=== PATIENT | female | born 2000 | race American Indian/Alaskan Native ===

== ENCOUNTER 2021-02-19 23:53 | Emergency (ER) | payer OTHER ==
[2021-02-20 00:55] VITALS: BP 111/68
--- NOTE | 2021-02-20 01:13 | Emergency Department Report ---
ED General Adult HPI - General Chief complaint: Rectal Pain Stated complaint: RECTUM PAIN/HEMORRHOIDS Time Seen by Provider: 02/20/21 00:57 Source: patient Mode of arrival: Ambulatory Limitations: No Limitations - History of Present Illness Initial comments: 21-year-old female presents to the emergency department with complaints of rectal discomfort starting 1 hour ago. Patient states she noticed bleeding after a bowel movement, prompting her to come to the emergency department. Patient states she experienced similar symptoms a few years ago. Patient is currently 7 months . No recent trauma. No medications prior to arrival. Denies fever, chills, melena, vaginal bleeding, purulent drainage. Denies all other complaints at this time. - Related Data Previous Rx's Medication Instructions Recorded Last Taken Type Hydrocort/Pramoxine [Proctofoam-Hc] 10 gm MI QID #1 can 02/20/21 Unknown Rx Allergies Allergy/AdvReac Type Severity Reaction Status Date / Time No Known Allergies Allergy Verified 02/20/21 00:55 ED Review of Systems ROS: Stated complaint: RECTUM PAIN/HEMORRHOIDS Other details as noted in HPI Other: GENERAL: Negative for fever. CARDIOVASCULAR: Negative for chest pain. PULMONARY: Negative for shortness of breath. GASTROINTESTINAL: Positive for rectal pain and bleeding. MUSCULOSKELETAL: Negative for back pain. NEUROLOGICAL: Negative for headache. INTEGUMENTARY: Negative for rash. ED Past Medical Hx - Past Medical History Previous Medical History?: No - Surgical History Past Surgical History?: No - Social History Smoking Status: Never Smoker Substance Use Type: None - Medications Home Medications: Home Medications Medication Instructions Recorded Confirmed Last Taken Type Hydrocort/Pramoxine [Proctofoam-Hc] 10 gm MI QID #1 can 02/20/21 Unknown Rx ED Physical Exam - General Limitations: No Limitations - Other Other exam information: General: Awake, appropriately interactive, no acute distress. Neck: Supple. Full range of motion intact. Cardiovascular: Normal peripheral perfusion. Pulmonary: No respiratory distress. Patient is speaking normally without use of accessory muscles. Rectal: Female pre certification specialist (asael Blum) present. Non-thrombosed external hemorrhoid noted at approximately 10:00 position. No bleeding. Skin: No apparent rashes or lesions. Neurological: No facial asymmetry. Speech is clear. Follows commands. Patient is alert and oriented. Musculoskeletal: Moves all four extremities spontaneously with normal range of motion. Psych: Cooperative. Appropriate mood and affect. ED Course Vital Signs 02/20/21 00:52 Temperature 97.8 F Pulse Rate 87 Respiratory 16 Rate Blood Pressure 111/68 O2 Sat by Pulse 98 Oximetry ED Medical Decision Making - Medical Decision Making Patient presents to the emergency department with complaints of rectal discomfort. Physical exam shows nonthrombosed external hemorrhoid, likely exacerbated by third trimester . Patient is afebrile hemodynamically stable. No abdominal pain, no loss of vaginal fluid. No clinical indication for further diagnostic work-up on an emergent basis at this time. Patient will be discharged home with prescription for topical steroid and encouraged to use stool softeners + Sitz baths for symptomatic relief. Referred to surgeon for outpatient follow up as needed. Patient expressed understanding and is agreeable to plan of care. Dietary modifications discussed. Strict return precautions provided. History, exam, diagnostic testing, and current condition do not suggest wor risome pathology to warrant further testing, continued ED treatment, admission, or surgical evaluation at this point. Given the low probability of a significant medical illness, it would be more likely to result in harm than benefit to perform further testing at this stage. Discussed findings, presumptive diagnosis, need for follow-up and specific signs/symptoms that should prompt immediate return to the emergency department. Instructions were explained in detail to the patient in addition to giving written discharge information. Patient expressed understanding and was given the opportunity to ask questions, all of which were satisfactorily answered prior to discharge home. Critical care attestation.: If time is entered above; I have spent that time in minutes in the direct care of this critically ill patient, excluding procedure time. ED Disposition Clinical Impression: External hemorrhoid Disposition: 01 HOME / SELF CARE / HOMELESS Is pt being admited?: No Does the pt Need Aspirin: No Condition: Stable Instructions: Hemorrhoids Additional Instructions: Take Tylenol every 4 hours as needed for pain. Use Proctofoam as directed. Use [id number] stool softeners as needed. Increase your dietary intake of fiber rich foods. Follow-up with your primary care provider this week. Call tomorrow to schedule an appointment. Follow-up with general surgeon as needed. See referral information below. Follow-up with your reproduction specialist as scheduled. Return to the emergency department immediately for new or worsening symptoms Prescriptions: Hydrocort/Pramoxine [Proctofoam-Hc] 10 gm MI QID #1 can Referrals: AJ MORENO MD [Staff Physician] - 3-5 Days Time of Disposition: 01:15
== END 2021-02-20 01:35 | disposition home or self-care (01) ==
LOC: ED 23:53
DX: O22.43 Hemorrhoids in pregnancy, third trimester (principal); Z3A.00 Weeks of gestation of pregnancy not specified
CPT/HCPCS: 99282